=== PATIENT | female | born 1970 | race Two or more races ===

== ENCOUNTER 2022-01-03 13:32 | Emergency (ER) | payer BC ==
[~2022-01-03] VITALS: Ht 157.5 cm; Wt 60.6 kg
[2022-01-03 14:00] VITALS: BP 148/71
--- NOTE | 2022-01-03 14:20 | NUR ---
BIB SELF C/O HEAD, BACK S/P FALL X YESTERDAY. DENIES LOC PMH: OSTEOPOROSIS, HTN
[2022-01-03] MEDS ORDERED: IBUP-2213 PO (16:35)
[2022-01-03 17:18] VITALS: BP 129/72
[2022-01-03] MEDS ORDERED: METH-1681 PO (17:18)
--- NOTE | 2022-01-03 17:18 | NUR ---
Patient discharged with v/s stable. Written and verbal after care instructions given. Patient alert, oriented and verbalized understanding of instructions. Ambulatory with steady gait. All questions addressed prior to discharge. ID band removed. Patient advised to follow up with PMD. Rx of IBUPROFEN given. Opportunity to ask questions provided and answered.
== END 2022-01-03 17:18 | disposition home or self-care (01) ==
LOC: MED 13:32
DX: S09.90XA Unspecified injury of head, initial encounter (principal); S30.0XXA Contusion of lower back and pelvis, initial encounter; I10 Essential (primary) hypertension; Z79.899 Other long term (current) drug therapy; Z79.1 Long term (current) use of non-steroidal anti-inflammatories (NSAID); W10.8XXA Fall (on) (from) other stairs and steps, initial encounter; Y92.89 Other specified places as the place of occurrence of the external cause; Y93.01 Activity, walking, marching and hiking; Y99.8 Other external cause status
CPT/HCPCS: 70450; 72110; 99284